=== PATIENT | female | born 1990 | race African-American/Black ===

== ENCOUNTER 2017-12-02 22:14 | Emergency (ER) | payer SELFPAY ==
[2017-12-02 22:55] LABS: APPEARANCE,URINE Turbid (CLEAR); BILIRUBIN,URINE Negative (NEGATIVE); COLOR,URINE Yellow (YELLOW); GLUCOSE, URINE (UA) Negative (NEGATIVE); KETONES,URINE Trace mg/dL (NEGATIVE); LEUKOCYTE ESTERASE ,URINE Large (NEGATIVE); NITRATE,URINE Negative (NEGATIVE); OCCULT BLOOD,URINE Large (NEGATIVE); PH,URINE 5.5 (5.0-8.0); PROTEIN,URINE 300 (NEGATIVE)
[2017-12-02 23:02] LABS: AMPHET/METH SCREEN,URINE NEGATIVE (NEGATIVE); BARBITURATE SCREEN, URINE NEGATIVE (NEGATIVE); BENZODIAZEPINES SCREEN,URINE NEGATIVE (NEGATIVE); CANNABINOID SCREEN,URINE NEGATIVE (NEGATIVE); COCAINE SCREEN,URINE NEGATIVE (NEGATIVE); OPIATE SCREEN,URINE NEGATIVE (NEGATIVE); PHENCYCLIDINE SCREEN,URINE NEGATIVE (NEGATIVE)
[2017-12-02 23:04] LABS: BACTERIA,URINE Moderate /HPF (None Seen); MUCUS,URINE None Seen LPF (None Seen); SQUAMOUS EPITHELIAL CELL,UR None Seen /LPF (0-2); WBC,URINE TNTC /HPF (0-1)
[2017-12-02 23:05] LABS: HCG,QUAL RESULT NEGATIVE (NEGATIVE)
[2017-12-02] MEDS ORDERED: LIDOCAINE HCL-MPF 1% 2ML VIAL ONE (23:34)
[2017-12-02] MEDS ORDERED: KETOROLAC TROMETHAMINE 60 MG/2 ML VIAL ONE (23:35)
[2017-12-02] MEDS ORDERED: CEFTRIAXONE SODIUM 1 GM ONE (23:35)
== END 2017-12-02 23:56 | disposition home or self-care (01) ==
LOC: EDH 22:14
DX: N12 Tubulo-interstitial nephritis, not specified as acute or chronic (principal); R31.9 Hematuria, unspecified; Z88.1 Allergy status to other antibiotic agents; Z90.49 Acquired absence of other specified parts of digestive tract
CPT/HCPCS: 80305; 81001; 81025; 96372 ×2; 99284; J0696; J1885; J3490